=== PATIENT | female | born 1940 | race Hispanic/Latino ===

== ENCOUNTER 2021-07-02 12:16 | Emergency (ER) | payer BC, OTHER ==
[2021-07-02] MEDS ORDERED: IBUPROFEN 400 MG TAB ONE (13:35)
--- NOTE | 2021-07-02 13:36 | RAD REPORT ---
EXAM DESCRIPTION: CT - CTHCSPWOC - 07/02/2021 1:04 pm CLINICAL HISTORY: Fall injury, blunt force trauma to the face, head and neck pain COMPARISON: No comparisons TECHNIQUE: Axial 5 mm thick images of the head were obtained. Axial 2 mm thick images of the cervic al spine were obtained with sagittal and coronal reconstruction images generated and reviewed. All CT scans are performed using dose optimization technique as appropriate and may include automated exposure control or mA/KV adjustment according to patient size. FINDINGS: No intracranial hemorrhage, mass, edema or acute intracranial finding. No suspicion for ac klarissa infarction. No extra-axial fluid collections. Patient has minimal for age atrophy. Ventricles are normal size. Mild chronic ischemic pattern seen in the cerebral white matter and basal ganglia. Mast oid air cells are clear. Sinuses, facial bones and orbits are separately detailed. Cervical bodies are normal in height. There is very slight retrolisthesis of C5 on C6 where there is also significant C5-6 disc space narrowing and endplate spurring. C6-7 disc levels also narrowed. Mil d bilateral bony foraminal encroachment at both of these disc levels. No other disc space narrowing. No fracture or acute bony abnormality. No pathologic bone process. Central canal detail is inherently limited. No paraspinal mass or hematoma. IMPRESSION: No hemorrhage, edema or acute intracranial finding identified. Orbits, facial bones and sinuses are separately detailed. Negative CT cervical spine examination for acute finding. Degenerative changes are prominent at C5-6 and C6-7.
--- NOTE | 2021-07-02 13:38 | RAD REPORT ---
EXAM DESCRIPTION: CT - Facial Bones W/ Mpr - 07/02/2021 1:04 pm CLINICAL HISTORY: Fall, blunt force trauma to the face COMPARISON: None. TECHNIQUE: Axial 2 millimeter thick images of the facial bones were obtained with sagittal and coron al reconstruction imaging. All CT scans are performed using dose optimization technique as appropriate and may include automated exposure control or mA/KV adjustment according to patient size. FINDINGS: The patient has a nondisplaced fracture at the tip of the nasal bone. Nasal septum shows s light left deviation. An acute nasal septum fracture is not seen. No globe or orbital content injury seen. No other facial bone fracture is identified. Mandible appears intact with condyles normally pos itioned. Mastoid air cells and middle ears are clear. Patient has bilateral maxillary sinus mucosal thickening. Antral window defects are present. Chronic sinusitis changes are present to the abreu of the left maxillary sinus. No air-fluid level or other a cute paranasal sinus finding. IMPRESSION: Patient has a nondisplaced fracture at the tip of the nasal bone. No other facial bone f racture seen. Chronic maxillary sinusitis.
[2021-07-02] MEDS ORDERED: ACETAMINOPHEN 325 MG TABLET ONE (13:41)
[2021-07-02] MEDS ORDERED: DERMABOND SKIN ADHESIVE TOP ONE (14:11)
--- NOTE | 2021-07-02 14:54 | ER ---
Nurse's Notes [facility] Name: Araceli Hill Age: 81 yrs Sex: Female : 1940 Arrival Date: 07/02/2021 Time: 12:18 Bed 17 Private MD: Diagnosis: Fracture of nasal bones;Fall on same level, unspecified;Abrasion, right knee;Abrasion of nose Presentation: 07/02 12:29 Chief complaint: Patient states: about 20 minutes ago pt tripped over the concrete vg1 block in [place] the [place] and fell onto Right knee and nose. Pt appears to have a skin tear on Right knee and nose; nose appears to be swollen and blue in color. Bleeding is controlled. Coronavirus screen: Vaccine status: Patient reports receiving the 2nd dose of the covid vaccine. Client denies travel out of the [place] in the last 14 days. Ebola Screen: Patient negative for fever greater than or equal to 101.5 degrees Fahrenheit, and additional compatible Ebola Virus Disease symptoms. Initial Sepsis Screen: Does the patient meet any 2 criteria? No. Patient's initial sepsis screen is negative. Does the patient have a suspected source of infection? No. Patient's initial sepsis screen is negative. Risk Assessment: Do you want to hurt yourself or someone else? Patient reports no desire to harm self or others. Onset of symptoms was July 02, 2021. 12:29 Method Of Arrival: Wheelchair vg1 12:29 Acuity: DANYEL 3 vg1 13:48 Care prior to arrival: None. Mechanism of Injury: Fall. Trauma event details: Injury ll1 occurred in the [facility]. Triage Assessment: 12:31 General: Appears in no apparent distress. uncomfortable, Behavior is calm, cooperative. vg1 Pain: Complains of pain in right knee and nose Pain currently is 6 out of 10 on a pain scale. Pain began 30 min ago. Neuro: Level of Consciousness is awake, alert, obeys commands, Oriented to person, place, time, situation. Respiratory: Airway is patent Respiratory effort is even, unlabored. Musculoskeletal: Circulation, motion, and sensation intact. Trauma Activation: Not Applicable Physician: ED Physician; Name: ; Notified At: ; Arrived At: Physician: General Surgeon; Name: ; Notified At: ; Arrived At: Physician: Radiology; Name: ; Notified At: ; Arrived At: Physician: Respiratory; Name: ; Notified At: ; Arrived At: Physician: Lab; Name: ; Notified At: ; Arrived At: Historical: - Allergies: 12:31 Levaquin; vg1 12:31 Amoxicillin; vg1 - Home Meds: 12:31 Xarelto oral oral [Active]; Lisinopril Oral [Active]; Metformin Oral [Active]; vg1 13:44 sotalol 120 mg Oral tab [Active]; Jardiance 10 mg oral tab [Active]; lovastatin 10 mg ll1 Oral tab [Active]; multivitamin oral tab [Active]; - PMHx: 12:31 Hypertensive disorder; Diabetes mellitus; Hypercholesterolemia; Arthritis; vg1 - Immunization history:: Client reports receiving the 2nd dose of the Covid vaccine. - Social history:: Smoking status: Patient denies any tobacco usage or history of. - Immunization history: Last tetanus immunization: - up to date. Screenin:35 Abuse screen: Denies threats or abuse. Nutritional screening: No deficits noted. ll1 Tuberculosis screening: No symptoms or risk factors identified. 13:49 Fall Risk Fall in past 12 months (25 points). Gait- Impaired (20 pts.). Total Luo ll1 Fall Scale indicates High Risk Score (45 or more points). Fall prevention measures have been instituted. Side Rails Up X 2 Frequent Obs/Assessments Occuring As available patient and family educated on Fall Prevention Program and Strategies. Primary Survey: 13:47 NO uncontrolled hemorrhage observed. A: The patient is alert. Airway: patent. ll1 Breathing/Chest: Respiratory pattern: regular, Respiratory effort: spontaneous, unlabored, Breath sounds: clear. Circulation: Pulses: palpable right radial artery and left radial artery. Skin color: pink. Disability Alert. Exposure/Environment: There is no evidence of uncontrolled external bleeding. Obvious injury(ies) are noted at this time: nose and R knee A warming method has been applied: A warm blanket has been provided to the patient. 14:47 Reassessment Breathing/Chest Respiratory pattern Regular Respiratory effort Spontaneous ll1 Unlabored Breath sounds Clear Chest inspection Symmetrical. Assessment: 13:30 Reassessment: No changes from previously documented assessment. Patient and/or family ll1 updated on plan of care and expected duration. Pain level reassessed. Patient is alert, oriented x 3, equal unlabored respirations, skin warm/dry/pink. 14:30 Reassessment: No changes from previously documented assessment. Patient and/or family ll1 updated on plan of care and expected duration. Pain level reassessed. Patient is alert, oriented x 3, equal unlabored respirations, skin warm/dry/pink. Vital Signs: 12:29 BP 140 / 62; Pulse 74; Resp 16; Temp 98.3; Pulse Ox 98% ; Weight 66.68 kg; Height 5 ft. vg1 5 in. (165.10 cm); Pain 6/10; 14:46 BP 159 / 71; Pulse 66; Resp 16; Pulse Ox 98% ; ll1 12:29 Body Mass Index 24.46 (66.68 kg, 165.10 cm) vg1 Christy Coma Score: 13:48 Eye Response: spontaneous(4). Verbal Response: oriented(5). Motor Response: obeys ll1 commands(6). Total: 15. Trauma Score (Adult): 13:48 Eye Response: spontaneous(1); Verbal Response: oriented(1); Motor Response: obeys ll1 commands(2); Systolic BP: > 89 mm Hg(4); Respiratory Rate: 10 to 29 per min(4); Sandgap Score: 15; Trauma Score: 12 ED Course: 12:18 Patient arrived in ED. as 12:23 Kenny Lee, RN is Primary Nurse. ll1 12:23 Arm band placed on Patient placed in an exam room, on a stretcher. ll1 12:31 Triage completed. vg1 12:32 Darryl Ellington NP is PHCP. pm1 12:32 Deanne Perdomo MD is Attending Physician. pm1 12:34 Irrigation of abrasion on nose, R knee irrigated with normal saline Patient tolerated ll1 well. 13:04 CT Facial Bones W/O Con In Process Unspecified. EDMS 13:04 CT Head C Spine In Process Unspecified. EDMS 13:48 Patient has correct armband on for positive identification. Bed in low position. Call ll1 light in reach. Side rails up X 1. Cardiac monitoring not applicable on this patient. 13:48 Patient maintains SpO2 saturation greater than 95% on room air. Thermoregulation: warm ll1 blanket given to patient. 14:46 No provider procedures requiring assistance completed. Patient did not have IV access ll1 during this emergency room visit. Administered Medications: 13:44 Drug: Tylenol 650 mg Route: PO; ll1 15:07 Follow up: Response: No adverse reaction ll1 Output: 15:07 Urine: 100ml; Total: 100ml. ll1 Outcome: 14:53 Discharge ordered by . pm1 15:06 Discharged to home ambulatory. ll1 15:06 Condition: stable 15:06 Discharge instructions given to patient, family, Instructed on discharge instructions, follow up and referral plans. no drinking with medication, no driving heavy equipment, medication usage, wound care, Demonstrated understanding of instructions, follow-up care, medications, wound care, Prescriptions given X 1. 15:07 Patient left the ED. 1 Signatures: Dispatcher [employer] Negin Strong Patrick, ROBIN CENTERLESS GRINDING MACHINE ADJUSTER pm1 Radha Longoria, RN RN vg1 Kenny Lee RN RN ll1 Corrections: (The following items were deleted from the chart) 13:47 13:44 Home Meds: Flexeril 10 mg Oral tab once daily; 1 1
--- NOTE | 2021-07-02 14:54 | EDPHYS ---
Physician Documentation [facility] Name: Araceli Hill Age: 81 yrs Sex: Female : 1940 Arrival Date: 07/02/2021 Time: 12:18 Bed 17 Private MD: ED Physician Deanne Perdomo HPI: 07/02 12:41 This 81 yrs old Female presents to ER via Wheelchair with complaints of Fall pm1 injury, abrasion to leg and nose. 12:41 Details of fall: The patient fell and struck a concrete surface. Onset: The pm1 symptoms/episode began/occurred just prior to arrival. Associated injuries: The patient sustained right knee, abrasion, nose, abrasion, contusion. The patient has not experienced similar symptoms in the past. The patient has not recently seen a physician. Patient was walking in parking lot and tripped on the parking lot wheel stops and landed on her right knee and face. No neck pain, no LOC, no headache. Patient with contusion and abrasion to nose and nasal pain. Historical: - Allergies: 12:31 Levaquin; vg1 12:31 Amoxicillin; vg1 - Home Meds: 12:31 Xarelto oral oral [Active]; Lisinopril Oral [Active]; Metformin Oral [Active]; vg1 13:44 sotalol 120 mg Oral tab [Active]; Jardiance 10 mg oral tab [Active]; lovastatin 10 mg ll1 Oral tab [Active]; multivitamin oral tab [Active]; - PMHx: 12:31 Hypertensive disorder; Diabetes mellitus; Hypercholesterolemia; Arthritis; vg1 - Immunization history:: Client reports receiving the 2nd dose of the Covid vaccine. - Social history:: Smoking status: Patient denies any tobacco usage or history of. - Immunization history: Last tetanus immunization: - up to date. ROS: 12:41 Constitutional: Negative for fever, chills, and weight loss. pm1 12:41 Eyes: Negative for injury, pain, redness, and discharge, ENT: Negative for injury, pain, and discharge, Neck: Negative for injury, pain, and swelling, Cardiovascular: Negative for chest pain, palpitations, and edema, Respiratory: Negative for shortness of breath, cough, wheezing, and pleuritic chest pain, Abdomen/GI: Negative for abdominal pain, nausea, vomiting, diarrhea, and constipation. 12:41 Neuro: Negative for headache, weakness, numbness, tingling, and seizure. 12:41 MS/extremity: Positive for abrasion, of the right knee. 12:41 Skin: Positive for abrasion(s), ecchymosis, of the nose. 12:41 All other systems are negative. Exam: 12:41 Constitutional: This is a well developed, well nourished patient who is awake, alert, pm1 and in no acute distress. Head/Face: Normocephalic, atraumatic. Eyes: Pupils equal round and reactive to light, extra-ocular motions intact. Lids and lashes normal. Conjunctiva and sclera are non-icteric and not injected. Cornea within normal limits. Periorbital areas with no swelling, redness, or edema. 12:41 Neck: Trachea midline, no thyromegaly or masses palpated, and no cervical lymphadenopathy. Supple, full range of motion without nuchal rigidity, or vertebral point tenderness. No Meningismus. 12:41 Chest/axilla: Normal chest wall appearance and motion. Nontender with no deformity. No lesions are appreciated. 12:41 ENT: Nose: abrasion, that is superficial, on the apex of the nose, Contusion to bridge of nose. 12:41 Cardiovascular: Exam negative for acute changes, Rate: normal, Rhythm: regular, Pulses: no pulse deficits are appreciated, Heart sounds: normal. 12:41 Respiratory: Exam negative for acute changes, respiratory distress, shortness of breath, Breath sounds: are clear throughout. 12:41 Abdomen/GI: Exam negative for acute changes, Inspection: abdomen appears normal, Palpation: abdomen is soft and non-tender, in all quadrants. 12:41 Skin: Appearance: normal except for affected area, injury, abrasion(s), small abrasion noted, of the right knee. 12:41 Neuro: Exam negative for acute changes, Orientation: is normal, Mentation: is normal, Motor: is normal, moves all fours. Vital Signs: 12:29 BP 140 / 62; Pulse 74; Resp 16; Temp 98.3; Pulse Ox 98% ; Weight 66.68 kg; Height 5 ft. vg1 5 in. (165.10 cm); Pain 6/10; 14:46 BP 159 / 71; Pulse 66; Resp 16; Pulse Ox 98% ; ll1 12:29 Body Mass Index 24.46 (66.68 kg, 165.10 cm) vg1 Christy Coma Score: 13:48 Eye Response: spontaneous(4). Verbal Response: oriented(5). Motor Response: obeys ll1 commands(6). Total: 15. Trauma Score (Adult): 13:48 Eye Response: spontaneous(1); Verbal Response: oriented(1); Motor Response: obeys ll1 commands(2); Systolic BP: > 89 mm Hg(4); Respiratory Rate: 10 to 29 per min(4); Christy Score: 15; Trauma Score: 12 MDM: 12:40 Patient medically screened. pm1 14:51 Data reviewed: vital signs. Data interpreted: Pulse oximetry: on room air is 98 %. pm1 Interpretation: normal. Counseling: I had a detailed discussion with the patient and/or guardian regarding: the historical points, exam findings, and any diagnostic results supporting the discharge/admit diagnosis, radiology results, the need for outpatient follow up, to return to the emergency department if symptoms worsen or persist or if there are any questions or concerns that arise at home. 07/02 12:40 Order name: CT Facial Bones W/O Con; Complete Time: 13:55 pm1 07/02 12:40 Order name: CT Head C Spine; Complete Time: 13:55 pm1 07/02 14:08 Order name: Dermabond; Complete Time: 15:07 pm1 Administered Medications: 13:44 Drug: Tylenol 650 mg Route: PO; ll1 15:07 Follow up: Response: No adverse reaction ll1 Disposition: 18:11 Co-signature as Attending Physician, eDanne Perdomo MD PA/ATTENDING PSYCHIATRIST's history reviewed, ma2 patient interviewed, and examined. I agree with assessment and care plan and confirm the diagnosis (es) above. Disposition Summary: 07/02/21 14:53 Discharge Ordered Location: Home pm1 Problem: new pm1 Symptoms: have improved pm1 Condition: Stable pm1 Diagnosis - Fracture of nasal bones pm1 - Fall on same level, unspecified pm1 - Abrasion, right knee pm1 - Abrasion of nose pm1 Followup: pm1 - With: Emergency Department - When: As needed - Reason: Worsening of condition Followup: pm1 - With: Private Physician - When: 2 - 3 days - Reason: Recheck today's complaints, Continuance of care, Re-evaluation by your physician Discharge Instructions: - Discharge Summary Sheet pm1 - Abrasion pm1 - Tissue Adhesive Wound Care pm1 - Head Injury, Adult pm1 - Fall Prevention in the Home, Adult pm1 - Nasal Fracture pm1 Forms: - Medication Reconciliation Form pm1 - Thank You Letter pm1 - Antibiotic Education pm1 - Prescription Opioid Use pm1 Prescriptions: - Tramadol 50 mg Oral Tablet - take 1 tablet by ORAL route every 8 hours as needed; 12 tablet; Refills: 0, pm1 Product Selection Permitted Signatures: Dispatcher [employer] EDMS Darryl Ellington, ROBIN ATTENDING PSYCHIATRIST pm1 Deanne Perdomo MD MD ma2 Radha Longoria RN RN 1 Kenny Lee RN RN ll1 Corrections: (The following items were deleted from the chart) 13:47 13:44 Home Meds: Flexeril 10 mg Oral tab once daily; ll1 ll1
[2021-07-02 15:12] VITALS: TEMP 98.3; O2SAT 98
[2021-07-02 15:13] VITALS: BP 159/71
== END 2021-07-02 15:07 | disposition home or self-care (01) ==
LOC: ER 12:16
DX: S02.2XXA Fracture of nasal bones, initial encounter for closed fracture (principal); S80.211A Abrasion, right knee, initial encounter; S00.31XA Abrasion of nose, initial encounter; W18.30XA Fall on same level, unspecified, initial encounter; I10 Essential (primary) hypertension; E11.9 Type 2 diabetes mellitus without complications; Z88.1 Allergy status to other antibiotic agents
CPT/HCPCS: 70450; 70486; 72125; 76377; 99284

== ENCOUNTER 2024-01-10 12:10 | Inpatient (IN) | payer BC, OTHER ==
[2024-01-10 12:41] LABS: Absolute Eosinophils 0.1 K/uL (0-0.5); Absolute Lymphocytes (CBC) 3.3 K/uL (0.7-4.9); Absolute Monocytes 1.2 K/uL (0.1-1.3); Absolute Neutrophil 5.3 K/uL (1.8-8.0); Basophils % 0.4 % (0-1.3); Eosinophils % 0.7 % (0-4.4); Hematocrit 29.7 % (36.0-45.0); Lymphocytes % 33.3 % (15.3-44.8); MCH 21.9 pg (27.0-35.0); MCHC 30.3 g/dL (32.0-36.0); MCV 72.1 fL (80-100); MPV 8.2 fL (7.6-11.3); Monocytes % 11.9 % (3.3-12.3); Neutrophils % 53.7 % (41.7-73.7); Platelets 267 thou/uL (152-406); RBC Red Blood Cell Count 4.12 M/uL (3.86-4.86); Red Cell Distribution Width 19.4 % (12.1-15.2)
--- NOTE | 2024-01-10 12:48 | RAD REPORT ---
EXAM DESCRIPTION: CT - Ct Stroke Brain Wo Cont - 01/10/2024 12:40 pm CLINICAL HISTORY: STROKE ALERT Headache, drowsiness, CVA COMPARISON: Facial Bones W/ Mpr dated 07/02/2021 TECHNIQUE: All CT scans are performed using dose optimization technique as appropriate and may inclu de automated exposure control or mA/KV adjustment according to patient size. FINDINGS: No intracranial hemorrhage, hydrocephalus or extra-axial fluid collection.Moderate general ized brain atrophy is present with moderate periventricular and deep white matter chronic microvascul ar ischemic changes.No areas of brain edema or evidence of midline shift. Thickening of the abreu of the left maxillary antrum, chronic. The paranasal sinuses and mastoids are otherwise clear. The calvarium is intact. IMPRESSION: No acute intracranial abnormality. The findings were discussed with Dr. Navarrete in the ER On 01/10/2024 at 12:42 p.m. by telephone.
[2024-01-10 12:50] LABS: PT Prothrombin Time 22.9 SECONDS (9.4-12.5); PTT, Activated Partial Thromb 37.2 SECONDS (24.3-36.9); Protime INR 2.13
--- NOTE | 2024-01-10 12:52 | RAD REPORT ---
EXAM DESCRIPTION: CT - Head angio - 01/10/2024 12:39 pm CLINICAL HISTORY: 1. STROKE ALER Headache, drowsiness, CVA symptomology COMPARISON: Ct Stroke Brain Wo Cont dated 01/10/2024; Facial Bones W/ Mpr dated 07/02/2021 TECHNIQUE: CT angiography of the head was performed with MIPs. All CT scans are performed using dose optimization technique as appropriate and may include automated exposure control or mA/KV adjustment according to patient size. FINDINGS: No evidence of large vessel occlusion. No evidence of aneurysm is detected. No flow-limiti ng stenosis or vascular malformation identified. Antegrade flow is seen in the vertebral arteries. The vertebral arteries are codominant. The visualized dural venous sinuses are patent. IMPRESSION: No significant flow abnormality is detected.
--- NOTE | 2024-01-10 12:55 | RAD REPORT ---
EXAM DESCRIPTION: CT - Neck Angio - 01/10/2024 12:39 pm CLINICAL HISTORY: facial droop, L Headache, drowsiness CVA symptomology COMPARISON: Head C Spine Mpr Wo Con dated 07/02/2021 TECHNIQUE: CT angiography of the neck vessels was performed with MIPs. All CT scans are performed using dose optimization technique as appropriate and may include automated exposure control or mA/KV adjustment according to patient size. FINDINGS: A left aortic arch is identified with normal three vessel configuration of the great vesse ls. No significant flow abnormality is seen of the common carotid bilaterally. Moderate hard plaquing is present involving both carotid bulbs. This results bilateral carotid stenos is estimated at 50-70% utilizing NASCET criteria. Normal flow is seen within both vertebral arteries. IMPRESSION: Moderate bilateral hard plaquing is seen resulting in stenosis estimated at 50-70% bilat erally based on NASCET criteria NASCET criteria used. Mild 0-49% stenosis Moderate 50-69% stenosis Severe 70-99% stenosis
--- NOTE | 2024-01-10 12:56 | RAD REPORT ---
EXAM DESCRIPTION: RAD - Chest Single View - 01/10/2024 12:39 pm CLINICAL HISTORY: stroke w/u Chest pain. COMPARISON: No comparisons FINDINGS: Portable technique limits examination quality. Interstitial prominence bilaterally may represent mild interstitial edema. The heart is mildly enlarg ed size. No displaced fractures. IMPRESSION: Mild CHF pattern is suspected.
[2024-01-10 13:01] LABS: ALT/SGPT 16 U/L (13-56); AST/SGOT 19 U/L (15-37); Albumin 3.9 g/dL (3.4-5.0); Alkaline Phosphatase 62 U/L (45-117); Anion Gap 11.2 mEq/L (5.0-15.0); BUN Blood Urea Nitrogen 29 mg/dL (7-18); Bicarbonate 27 mEq/L (21-32); Bilirubin Direct < 0.2 mg/dL (0-0.2); Bilirubin Total 0.2 mg/dL (0.2-1.0); Globulin 3.9 g/dL (2.3-3.5); Glomerular Filtration Rate 56 ml/min (=/>90); Glucose Level 95 mg/dL (74-106); Potassium 4.2 mEq/L (3.5-5.1); Protein, Total 7.8 g/dL (6.4-8.2); Sodium Level 138 mEq/L (136-145); Troponin High Sensitivity 9.5 pg/mL (<58.9)
--- NOTE | 2024-01-10 13:21 | ER ---
Nurse's Notes [facility] Name: Araceli Hill Age: 83 yrs Sex: Female : 1940 Arrival Date: 01/10/2024 Time: 12:10 Bed 13 Private MD: Diagnosis: Aphasia;Transient cerebral ischemic attack, unspecified Presentation: 01/09 12:15 Chief complaint: RIGHT SIDED FACIAL DROOP AND DIFFICULTY SPEAKING THAT STARTED AT NOON. hb 12:15 Pre-hospital glucose is not applicable to this patient. kc6 12:16 Coronavirus screen: At this time, the client does not indicate any symptoms associated hb with coronavirus-19. Ebola Screen: No symptoms or risks identified at this time. 12:16 Method Of Arrival: Wheelchair hb 12:16 An acute neurological deficit is present. The charge nurse has been notified. Initial hb Sepsis Screen: Does the patient meet any 2 criteria? No. Patient's initial sepsis screen is negative. Does the patient have a suspected source of infection? No. Patient's initial sepsis screen is negative. Risk Assessment: Do you want to hurt yourself or someone else? Patient reports no desire to harm self or others. Onset of symptoms was January 10, 2024 at 12:00. 12:16 Acuity: DANYEL 2 hb Triage Assessment: 12:15 The onset of the patients symptoms was less than three hours ago. kc6 19:27 The onset of the patients symptoms was. cp4 Stroke Activation: Symptom onset < 3 hours Physician: ED Attending; Name: ; Notified At: ; Arrived At: Physician: Mid-Level Provider; Name: ; Notified At: ; Arrived At: Physician: [not used]; Name: ; Notified At: ; Arrived At: Physician: [not used]; Name: ; Notified At: ; Arrived At: Physician: [not used]; Name: ; Notified At: ; Arrived At: Historical: - Allergies: 12:28 Amoxicillin; hb 12:28 Levaquin; hb - PMHx: 12:28 Arthritis; diabetes mellitus; Hypercholesterolemia; Hypertensive disorder; hb - Immunization history:: Adult Immunizations up to date. - Infectious Disease History:: Denies. - Social history:: Smoking status: Patient denies any tobacco usage or history of. Screenin:56 [facility] ED Fall Risk Assessment (Adult) History of falling in the last 3 months, kc6 including since admission No falls in past 3 months (0 pts) Confusion or Disorientation Yes (5 pts) Intoxicated or Sedated No (0 pts) Impaired Gait No (0 pts) Mobility Assist Device Used No (0 pt) Altered Elimination No (0 pt) Score/Fall Risk Level 3 or more points = High Risk. Abuse screen: Denies threats or abuse. Denies injuries from another. Nutritional screening: No deficits noted. Tuberculosis screening: No symptoms or risk factors identified. Assessment: 12:15 Reassessment: CODE STROKE CALLED, PT TO CT VIA WHEELCHAIR WITH JESSICA NUNEZ. hb 12:47 VAN Scoring: Arm Drift: Patients demonstrates NO arm weakness. Patient is VAN Negative. kc6 Visual Disturbance: No visual disturbance noted. Aphasia: Expressive aphasia noted. Provider notified of +VAN scoring. Neglect: No neglect noted. [place] [facility] Protocol Brief Cognitive Screen What is your name? Normal, Where are you right now? Normal, What year is it? Abnormal Oral Mechanism Examination Facial Symmetry: Normal, Motion: Normal, Lip Closure: Normal, Oral Mechanism Result: Normal. 3 oz Water Swallow Challenge: Pt able to drink all water without stopping, coughing, choking or throat clearing: Yes Result: PASS MD Notified: Enoz Mims MD. TNKase (Tenecteplase) Screening: Contraindications: Other: pt takes xarelto daily Is the patient on Aspirin, Heparin, or Warfarin: Yes. 12:47 General: Appears in no apparent distress. comfortable, well groomed, well developed, kc6 Behavior is calm, cooperative, appropriate for age. Pain: Denies pain. Neuro: Level of Consciousness is awake, alert, obeys commands, confused, Oriented to person, place, situation, Appropriate for age Screen Tender Helper are equal bilaterally Moves all extremities. Full function Gait is steady, Speech with expressive aphasia noted, Facial symmetry appears normal, Pupils are PERRLA, Intact Babinski is positive. Cardiovascular: Capillary refill < 3 seconds. Respiratory: Airway is patent Trachea midline Respiratory effort is even, unlabored, Respiratory pattern is regular, symmetrical. GI: No signs and/or symptoms were reported involving the gastrointestinal system. : No signs and/or symptoms were reported regarding the genitourinary system. EENT: No signs and/or symptoms were reported regarding the EENT system. Derm: No signs and/or symptoms reported regarding the dermatologic system. Skin is intact, is healthy with good turgor, Skin is pink, warm \T\ dry. Musculoskeletal: No signs and/or symptoms reported regarding the musculoskeletal system. Circulation, motion, and sensation intact. Capillary refill < 3 seconds, Range of motion: intact in all extremities. 13:46 Reassessment: Patient appears in no apparent distress at this time. No changes from kc6 previously documented assessment. Patient and/or family updated on plan of care and expected duration. Pain level reassessed. 14:46 Reassessment: Patient appears in no apparent distress at this time. No changes from kc6 previously documented assessment. Patient and/or family updated on plan of care and expected duration. Pain level reassessed. 15:10 Reassessment: PT TO MRI VIA WHEELCHAIR. kc6 15:37 Reassessment: PT RETURNED FROM MRI. kc6 Vital Signs: 12:51 BP 184 / 92; Pulse 91; Resp 20 S; Temp 98.2(O); Pulse Ox 100% on R/A; Weight 65.32 kg kc6 (R); Height 5 ft. 8 in. (R); 13:45 BP 166 / 92; Pulse 98; Resp 20 S; Pulse Ox 100% on R/A; kc6 12:51 Body Mass Index 21.89 (65.32 kg, 172.72 cm) kc6 NIH Stroke Scale Scores: 12:47 NIHSS Score: 2 kc6 ED Course: 12:12 Patient arrived in ED. mg5 12:13 Enzo Mims MD is Attending Physician. ec2 12:20 Clemencia Pugh RN is Primary Nurse. kc6 12:28 Triage completed. hb 12:29 Arm band placed on. hb 12:30 Patient has correct armband on for positive identification. Placed in gown. Bed in low kc6 position. Call light in reach. Side rails up X2. Adult w/ patient. school lunch monitor on. Pulse ox on. NIBP on. Warm blanket given. Pillow given. 12:33 Inserted saline lock: 22 gauge in right antecubital area, using aseptic technique. kc6 Blood collected. 12:41 CT Head Angio In Process Unspecified. EDMS 12:41 CT Neck Angio In Process Unspecified. EDMS 12:41 CT Stroke Brain w/o Contrast In Process Unspecified. EDMS 12:41 Stroke CXR 1 View In Process Unspecified. EDMS 13:20 Belgica Sweeney MD is Hospitalizing Provider. ec2 15:37 No provider procedures requiring assistance completed. Patient admitted, IV remains in kc6 place. 15:42 NON SLIP SOCKS GIVEN. aw1 Administered Medications: No medications were administered Medication: 15:37 VIS not applicable for this client. kc6 Point of Care Testing: Blood Glucose: 12:15 Blood Glucose: 92 mg/dL; kc Ranges: Outcome: 13:20 Decision to Hospitalize by Provider. ec2 15:37 Admitted to ER Hold. Please see [facility] for further documentation. kc6 15:37 Condition: stable 15:37 Instructed on the need for admit, 19:28 Patient left the ED. cp4 NIH Stroke Scale - NIH Stroke Score Date: 01/10/2024 Time: 12:47 Total Score = 2 10. Dysarthria (speech clarity - read or repeat words) - 0(Normal) 11. Extinction and Inattention (visual/tactile/auditory/spatial/personal) - 0(No abnormality) 1a. Level of Consciousness (LOC) - 0(Alert) 1b. Level of Consciousness (LOC) (Month \T\ Age) - 1(One) 1c. LOC Commands (Open \T\ Closes Eyes/Gift Shop Manager) - 0(Both) 2. Best Gaze (Lateral Gaze Paresis) - 0(Normal) 3. Visual Field Loss - 0(No visual loss) 4. Facial Palsy - 0(Normal) 5a. Left Arm: Motor (10-second hold) - 0(No drift) 5b. Right Arm: Motor (10-second hold) - 0(No drift) 6a. Left Leg: Motor (5-second hold - always test supine) - 0(No drift) 6b. Right Leg: Motor (5-second hold - always test supine) - 0(No drift) 7. Limb Ataxia (finger/nose \T\ heel/pagan - test with eyes open) - 0(Absent) 8. Sensory Loss (pinprick arms/legs/face) - 0(Normal) 9. Best Language: Aphasia (description/naming/reading) - 1(Mild to moderate aphasia) Initials: [facility] Signatures: Dispatcher [employer] EDMT Jessica Weir RN RN Clemencia Morales RN RN kc6 Anca Burgossa aw1 Gisel Harrington mg5 Enzo Mims MD MD ec2 Radha Ibarra cp4 Corrections: (The following items were deleted from the chart) 12:28 12:15 Chief complaint: RIGHT SIDED FACIAL DROOP AND DIFFICULTY SPEAKING THAT hb STARTED AT NOON. hb 13:04 12:47 [place] [facility]allow Protocol Brief Cognitive Screen What is your name? Normal, kc6 Where are you right now? Normal, What year is it? Abnormal Oral Mechanism Examination Facial Symmetry: Normal, Motion: Normal, Lip Closure: Normal, Oral Mechanism Result: Normal. 3 oz Water Swallow Challenge: Pt able to drink all water without stopping, coughing, choking or throat clearing: Yes Result: PASS MD Notified: Enzo Mims MD kc6 13:45 13:45 Reassessment: Patient appears in no apparent distress at this time. No kc6 changes from previously documented assessment. Patient and/or family updated on plan of care and expected duration. Pain level reassessed. kc6 15:34 13:46 Reassessment: Patient appears in no apparent distress at this time. No kc6 changes from previously documented assessment. Patient and/or family updated on plan of care and expected duration. Pain level reassessed. Patient is alert, oriented x 3, equal unlabored respirations, skin warm/dry/pink. kc6
--- NOTE | 2024-01-10 13:21 | EDPHYS ---
Physician Documentation [facility] Name: Araceli Hill Age: 83 yrs Sex: Female : 1940 Arrival Date: 01/10/2024 Time: 12:10 Bed 13 Private MD: ED Physician Enzo Mims HPI: 01/09 12:24 This 83 yrs old Female presents to ER via Unassigned with complaints of S/S of ec2 Possible Stroke. 12:24 History gathered from and granddaughter, patient with last known well 30 ec2 minutes prior to arrival, on Xarelto. Reportedly started having right-sided facial droop as well as right upper extremity numbness. Patient with no history of stroke.. Historical: - Allergies: 12:28 Amoxicillin; hb 12:28 Levaquin; hb - PMHx: 12:28 Arthritis; diabetes mellitus; Hypercholesterolemia; Hypertensive disorder; hb - Immunization history:: Adult Immunizations up to date. - Infectious Disease History:: Denies. - Social history:: Smoking status: Patient denies any tobacco usage or history of. ROS: 12:24 Constitutional: as per hpi ec2 Exam: 12:51 Radiologist reports: negative ec2 12:51 Constitutional: GEN: NAD Head: atraumatic Eyes: EOMI Ears: External ears are normal. CV: regular rate LUNGS: no respiratory distress ABD: non-distended SKIN: no evidence of rashes MSK: no evidence of trauma NEURO: moves all extremities equally, cranial nerves II through XII intact, no appreciable facial droop, no appreciable sensory deficit. Does have +1 for aphasia, +1 for month and age, total NIH of 2. Vital Signs: 12:51 BP 184 / 92; Pulse 91; Resp 20 S; Temp 98.2(O); Pulse Ox 100% on R/A; Weight 65.32 kg kc6 (R); Height 5 ft. 8 in. (R); 13:45 BP 166 / 92; Pulse 98; Resp 20 S; Pulse Ox 100% on R/A; kc6 12:51 Body Mass Index 21.89 (65.32 kg, 172.72 cm) kc6 NIH Stroke Scale Scores: 12:47 NIHSS Score: 2 kc6 MDM: 12:13 Patient medically screened. ec2 12:25 Data reviewed: vital signs. ED course: Patient arrives today with new onset stroke ec2 symptoms. Will obtain stroke workup. Patient is not a tenecteplase candidate given the Xarelto use. Differential diagnosis includes large vessel occlusion, ischemic stroke, intracranial brain bleed, intracranial mass.. 12:51 ED course: CBC shows anemia, discussed the case with radiology, no acute intracranial ec2 abnormality. Minor potation of the CT scan of the head, no evidence of brain bleed or mass. . 12:51 ED course: Patient arrives today for evaluation of facial droop as well as paresthesias ec2 in the right upper extremity, symptoms have since resolved. My examination yields slightly confused individual who is having some aphasia, CT scan of the head shows no acute intracranial abnormality, CT angio of the head and neck is pending. Will obtain lab work, MRI, admit for stroke workup.. 12:56 ED course: CT angio of the head and neck showed no large vessel occlusion.. ec2 12:56 ED course: EKG independently reviewed and interpreted by me, shows atrial fibrillation, ec2 rate of 92, no acute ST segment elevations, intervals are nonconcerning.. 12:57 ED course: MDM: Differential diagnosis as documented above in ED course; All lab tests ec2 ordered and reviewed as documented above; Independent interpretation of tests: EKG as above; imaging as above; History gathered from independent historian: Yes;Family; Discuss inpatient hospitalization: Yes; I discussed the case with: Hospitalist, radiologist . 13:20 ED course: Metabolic profile, troponin, LFTs are nonactionable. Will admit for ec2 strokelike symptoms, pending MRI. Discussed case with hospitalist, pending admission. . 01/09 12:23 Order name: Basic Metabolic Panel; Complete Time: 13:19 ec2 01/09 12:23 Order name: CBC with Diff; Complete Time: 15:04 ec2 01/09 12:23 Order name: Hepatic Function; Complete Time: 13:19 ec2 01/09 12:23 Order name: High Sensitivity Troponin; Complete Time: 13:19 ec2 01/09 12:23 Order name: Protime (+inr); Complete Time: 12:56 ec2 01/09 12:23 Order name: Ptt, Activated; Complete Time: 12:56 ec2 01/09 12:47 Order name: CBC Smear Scan; Complete Time: 15:04 EDMS 01/09 12:52 Order name: CREATININE WHOLE BLOOD; Complete Time: 12:56 EDMS 01/09 12:53 Order name: Glucose, Ancillary Testing; Complete Time: 12:56 EDMS 01/09 14:55 Order name: CBC with Automated Diff EDMS 01/09 14:55 Order name: CBC with Automated Diff EDMS 01/09 14:55 Order name: CBC with Automated Diff EDMS 01/09 14:55 Order name: CBC with Automated Diff EDMS 01/09 14:55 Order name: Comprehensive Metabolic Panel EDMS 01/09 14:55 Order name: Comprehensive Metabolic Panel EDMS 01/09 14:55 Order name: Comprehensive Metabolic Panel EDMS 01/09 14:55 Order name: Comprehensive Metabolic Panel EDMS 01/09 14:55 Order name: Hemoglobin A1c EDMS 01/09 14:55 Order name: Hemoglobin A1c EDMS 01/09 14:55 Order name: Lipid Profile EDMS 01/09 14:55 Order name: Lipid Profile EDMS 01/09 14:55 Order name: Magnesium EDMS 01/09 14:55 Order name: Magnesium EDMS 01/09 14:55 Order name: Magnesium EDMS 01/09 14:55 Order name: Magnesium EDMS 01/09 14:55 Order name: Protime (+INR) EDMS 01/09 14:55 Order name: Protime (+INR) EDMS 01/09 14:55 Order name: Protime (+INR) EDMS 01/09 14:55 Order name: Protime (+INR) EDMS 01/09 14:55 Order name: Protime (+INR) EDMS 01/09 14:55 Order name: Protime (+INR) EDMS 01/09 14:55 Order name: T4,Total EDMS 01/09 14:55 Order name: T4,Total EDMS 01/09 14:55 Order name: Thyroid Stimulating Hormone EDMS 01/09 14:55 Order name: Thyroid Stimulating Hormone EDMS 01/09 16:54 Order name: Glucose, Ancillary Testing EDMS 01/09 12:23 Order name: CT Head Angio; Complete Time: 12:56 ec2 01/09 12:23 Order name: CT Neck Angio; Complete Time: 12:56 ec2 01/09 12:23 Order name: CT Stroke Brain w/o Contrast; Complete Time: 12:50 ec2 01/09 12:23 Order name: Stroke CXR 1 View; Complete Time: 13:01 ec2 01/09 14:55 Order name: Echo with Doppler EDLA 01/09 15:51 Order name: MRI [facility] 01/09 12:23 Order name: EKG; Complete Time: 12:23 ec2 01/09 14:55 Order name: CONS Physician Consult [facility] 01/09 14:55 Order name: Physical Therapy Consult [facility] 01/09 14:55 Order name: Social Service Consult [facility] 01/09 14:55 Order name: Speech Therapy Consult [facility] 01/09 12:23 Order name: Accucheck; Complete Time: 12:51 ec2 01/09 12:23 Order name: Cardiac monitoring; Complete Time: 12:51 ec2 01/09 12:23 Order name: EKG - Nurse/Tech; Complete Time: 12:51 ec2 01/09 12:23 Order name: IV Saline Lock; Complete Time: 12:51 ec2 01/09 12:23 Order name: Labs collected and sent; Complete Time: 12:51 ec2 01/09 12:23 Order name: NPO; Complete Time: 12:51 ec2 01/09 12:23 Order name: O2 Per Protocol; Complete Time: 12:51 ec2 01/09 12:23 Order name: O2 Sat Monitoring; Complete Time: 12:51 ec2 01/09 12:23 Order name: Stroke Swallow Screen; Complete Time: 12:37 ec2 Administered Medications: No medications were administered Point of Care Testing: Blood Glucose: 12:15 Blood Glucose: 92 mg/dL; kc6 Ranges: Critical Glucose Levels:Adult <50 mg/dl or >400 mg/dl <40 mg/dl or >180 mg/dl Disposition Summary: 01/10/24 13:20 Hospitalization Ordered Notes: Hospitalization Status: Inpatient Admission ec2 Provider: Belgica Sweeney ec2 Location: Telemetry/MedSurg (Inpatient) ec2 Condition: Stable ec2 Problem: new ec2 Symptoms: have improved ec2 Bed/Room Type: Standard ec2 [facility]10[facility]24 18:18) [id number] Diagnosis - Aphasia ec2 - Transient cerebral ischemic attack, unspecified ec2 Forms: - Medication Reconciliation Form ec2 - SBAR form ec2 - Leadership Thank You Letter ec2 NIH Stroke Scale - NIH Stroke Score Date: 01/10/2024 Time: 12:47 Total Score = 2 10. Dysarthria (speech clarity - read or repeat words) - 0(Normal) 11. Extinction and Inattention (visual/tactile/auditory/spatial/personal) - 0(No abnormality) 1a. Level of Consciousness (LOC) - 0(Alert) 1b. Level of Consciousness (LOC) (Month \T\ Age) - 1(One) 1c. LOC Commands (Open \T\ Closes Eyes/Global Logistics Manager) - 0(Both) 2. Best Gaze (Lateral Gaze Paresis) - 0(Normal) 3. Visual Field Loss - 0(No visual loss) 4. Facial Palsy - 0(Normal) 5a. Left Arm: Motor (10-second hold) - 0(No drift) 5b. Right Arm: Motor (10-second hold) - 0(No drift) 6a. Left Leg: Motor (5-second hold - always test supine) - 0(No drift) 6b. Right Leg: Motor (5-second hold - always test supine) - 0(No drift) 7. Limb Ataxia (finger/nose \T\ heel/pagan - test with eyes open) - 0(Absent) 8. Sensory Loss (pinprick arms/legs/face) - 0(Normal) 9. Best Language: Aphasia (description/naming/reading) - 1(Mild to moderate aphasia) Initials: kc6 Signatures: Dispatcher [employer] EDMS Diane Lyle, FLOOR INSTALLATION MECHANIC-C FLOOR INSTALLATION MECHANIC-Csnw Jessica Weir, MAYRA NUNEZ Enzo Mims MD MD 2 Fabiana Chowdhury [facility] Corrections: (The following items were deleted from the chart) 12:24 12:23 BASIC METABOLIC PANEL+C.LAB.BRZ ordered. EDMS EDMS 12:24 12:23 CBC+H.LAB.BRZ ordered. EDMS EDMS 12:24 12:23 HEPATIC FUNCTION+C.LAB.BRZ ordered. EDMS EDMS 12:24 12:23 Troponin High Sensitivity+C.LAB.BRZ ordered. EDMS EDMS 12:24 12:23 PROTIME (+INR)+COAG.LAB.BRZ ordered. EDMS EDMS 12:24 12:23 PTT, ACTIVATED+COAG.LAB.BRZ ordered. EDMS EDMS 12:50 12:50 Brain Wo Cont+MRI.RAD.BRZ ordered. EDMS EDMS 18:18 13:20 ec2 [id number]
[2024-01-10 14:18] LABS: Anisocytosis 2+; Blood Morphology Comment NOTED (NOT SEEN); Hypochromasia 2+; Platelet Estimate ADEQ; White Blood Cell Scan OK (OK)
--- NOTE | 2024-01-10 15:06 | P.HP ---
Certification for Inpatient Patient admitted to: Inpatient With expected LOS: >2 Midnights <ValdoDiane Vaughn - Last Filed: 01/10/24 14:54> Patient History Date of Service: 01/10/24 Reason for admission: CVA History of Present Illness: Ms. Araceli Hill is a 83-year-old female with a past medical history of diabetes, hypertension, hyperlipidemia, arthritis, and atrial fibrillation. She and her are visiting her grandchild and are here from [place], [place]. At 1130 this morning she felt numbness in her right hand and arm and up into her mouth, it was felt that she had some slight facial droop, and she seemed to be having some aphasia. She was evaluated in the emergency department and an NIH stroke scale of [address] head negative for acute findings, CTA of head and neck both negative for acute findings specifically no large vessel occlusion. MRI brain protocol has been ordered. EKG shows rate controlled A-fib. Adelso Vasc score 4 (high risk) Patient is oriented, in no distress, on my arrival to the department she was being standby assisted with ambulation to the bathroom. She does still seem to have trouble naming objects, no facial symptoms appreciated, noted mild drift in the right lower extremity. NIHSS 3. Ms. Hill sees Dr. Wilder (next appointment in mid February) and has an appointment with her PCP next week. We will admit her for further investigation and treatment. Laboratory evaluation reveals: WBC 9.9 with no shift, H/H 9/29.7 with platelets of 267, electrolytes and liver enzymes normal, INR 2.13, troponin 9.5 Chest x-ray shows mild CHF pattern Home medications list reviewed: Yes - Past Medical/Surgical History Has patient received pneumonia vaccine in the past: Yes -: Hypertension -: Hyperlipidemia -: CHF -: A. fib -: Arthritis -: Diabetes Psychosocial/ Personal History: Lives at home with her of 58 years, Cecil. Has a walker. Her encourages her to ambulate with assist. In [place] visiting grandchildren. - Social History Smoking Status: Never smoker Alcohol use: No CD- Drugs: No Caffeine use: Yes Place of Residence: Home <Diane Lyle - Last Filed: 01/10/24 14:54> Date of Service: 01/10/24 <Belgica Sweeney Jet - Last Filed: 01/10/24 18:09> Allergies levofloxacin [From Levaquin] Allergy (Verified 01/10/24 15:07) Penicillins Allergy (Verified 01/10/24 15:07) Home Medications: Digoxin 125 mcg PO SEECOM 01/10/24 Furosemide [Lasix] 20 mg PO DAILY 01/10/24 Metformin ER [Glucophage ER] 1,000 mg PO DAILY 01/10/24 Metoprolol Tartrate 50 mg PO DAILY 01/10/24 Pantoprazole Sodium [Protonix] 40 mg PO DAILY 01/10/24 Potassium Chloride 10 meq PO DAILY 01/10/24 Rivaroxaban [Xarelto] 20 mg PO DAILY 01/10/24 Rosuvastatin Calcium 40 mg PO DAILY 01/10/24 Review of Systems 10-point ROS is otherwise unremarkable Neurological: As per HPI <Diane Lyle - Last Filed: 01/10/24 14:54> Physical Examination - Physical Exam General: Alert, In no apparent distress, Oriented x3 HEENT: Atraumatic, Normocephalic Neck: Supple Respiratory: Normal air movement Cardiovascular: No edema, Normal pulses, Irregular heart rate/rhythm Capillary refill: <2 Seconds Gastrointestinal: Soft and benign Musculoskeletal: No clubbing, No swelling Integumentary: No rashes Neurological: Normal tone, Normal affect, Other (right lower ext. drift, NIHSS 3), Abnormal speech, Abnormal sensation Lymphatics: No axilla or inguinal lymphadenopathy External genitalia: Deferred Rectal: Deferred - Studies Laboratory Data (last 24 hrs) 01/10/24 01/10/24 01/10/24 12:33 12:33 12:33 WBC 9.90 Hgb 9.0 L Hct 29.7 L Plt Count 267 PT 22.9 H INR 2.13 APTT 37.2 H Sodium 138 Potassium 4.2 BUN 29 H Creatinine 1.00 Glucose 95 Total Bilirubin 0.2 AST 19 ALT 16 Alkaline Phosphatase 62 <Diane Lyle - Last Filed: 01/10/24 14:54> - Studies Laboratory Data (last 24 hrs) 01/10/24 01/10/24 01/10/24 12:33 12:33 12:33 WBC 9.90 Hgb 9.0 L Hct 29.7 L Plt Count 267 PT 22.9 H INR 2.13 APTT 37.2 H Sodium 138 Potassium 4.2 BUN 29 H Creatinine 1.00 Glucose 95 Total Bilirubin 0.2 AST 19 ALT 16 Alkaline Phosphatase 62 <Belgica Sweeney - Last Filed: 01/10/24 18:09> Assessment and Plan - Plan CVA, HTN, Afib MRI Brain ASA 81mg po daily Xarelto 20mg po daily folic acid 1mg po dialy Neuro checks q 4h NIHSS q shift Skin protective measures Consult Dr. Cid Swallow screen prior to soft, bite size diet Consult PT/Speech A. Fib Continue medications for rate control Anticoagulation Echocardiogram tele HLD Rosuvastatin 40mg po q HS DM Glucose monitoring q ACHS mild SSI coverage Hold metformin 2nd to iv contrast GI and DVT prophylaxis ASA/Xarelto/Protonix - Advance Directives Does patient have a Living Will: No Does patient have a Durable POA for Healthcare: No - Code Status/Comfort Care Code Status Assessed: Yes Code Status: Full Code <Diane Lyle Roderick - Last Filed: 01/10/24 14:54> - Plan Pt is an 83yo female with past medical history of Diabetes, hypertension, hyperlipidemia, arthritis, and atrial fibrillation who presents presents with numbness in the right hand and arm with facial droop that was witnessed by a family member. The right hand numbness started at 1130am and pt came to ER for evaluation. On admission, Lab studies show wbc 9.9, Hgb 9, NA 138, K 4.2, Cr 1.0, CT head is negative for acute findings. CTA head is unremarkable. 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 MRI brain is unremarkable. At bedside, pt is in NAD without CVA symptoms. A/P: TIA: will observe pt overnight. Continue aspirin, atorvastatin, and permissive htn. CTA neck shows bilateral stenosis 50 - 70%. MRI brain is unremarkable. Consulted Neurology. DM II: Continue accuchek, SSI and ADA diet Htn: Continue med HLD: statin A. fib: Will continue telemetry, AC, and BB. Code: full <Belgica Sweeney - Last Filed: 01/10/24 18:09>
[2024-01-10] MEDS: METOPROLOL TAR 50 MG TAB PO SCH (15:19)
[2024-01-10] MEDS ORDERED: METOPROLOL TAR 50 MG TAB ONE ×2 (15:45→15:54)
--- NOTE | 2024-01-10 15:51 | RAD REPORT ---
EXAM DESCRIPTION: MRI - Brain Wo Cont - 01/10/2024 3:31 pm CLINICAL HISTORY: 1. STROKE ALER Headache, drowsiness, CVA COMPARISON: <Comparisons> TECHNIQUE: Multi-sequence, multiplanar MR imaging of the brain was performed without contrast. FINDINGS: No intracranial hemorrhage, hydrocephalus or extra-axial fluid collections.Moderate conflu ent T2/FLAIR hyperintensity in the periventricular and deep white matter is present compatible with c hronic microvascular ischemic changes. No edema or shift of midline structures. No findings to suspec t brain mass. DWI is negative for acute CVA. Midline structures are normally formed. Mastoid air cells and paranasal sinuses are clear. IMPRESSION: Negative for acute CVA or other acute intracranial process.
[2024-01-10 15:52] VITALS: BMI 21.7
[2024-01-10] MEDS: INSULIN REGULAR (HUMAN) 100 UNIT/ML SQ SCH (16:30)
[2024-01-10] MEDS: RIVAROXABAN 20 MG TABLET PO SCH (17:00)
[2024-01-10] MEDS: ROSUVASTATIN 10 MG TAB PO SCH (19:40)
[2024-01-10 21:12] LABS: Specific Gravity > 1.030 (1.005-1.030); Sqamous Epithelial <5 /HPF (None Seen); Urine Bacteria None Seen /HPF (<20); Urine Bilirubin NEGATIVE (Negative); Urine Blood Negative (Negative); Urine Clarity Clear (Clear); Urine Color Colorless (Yellow); Urine Culture Reflex Order NOT NEEDED; Urine Glucose NEGATIVE (Negative); Urine Ketones NEGATIVE (Negative); Urine Microscopic Reflex YN ORDER UMIC; Urine Nitrite NEGATIVE (Negative); Urine Protein TRACE (Negative); Urine RBC <5 /HPF (None Seen); Urine Urobilinogen Normal (Normal); Urine WBC <5 /HPF (<5); Urine Yeast (Budding) Trace /HPF (None Seen)
[2024-01-10] MEDS: ACETAMINOPHEN 325 MG TABLET PO PRN (21:52)
[2024-01-11 07:19] LABS: Absolute Eosinophils 0.1 K/uL (0-0.5); Absolute Lymphocytes (CBC) 1.9 K/uL (0.7-4.9); Absolute Monocytes 0.7 K/uL (0.1-1.3); Absolute Neutrophil 3.1 K/uL (1.8-8.0); Basophils % 0.5 % (0-1.3); Eosinophils % 0.9 % (0-4.4); Hematocrit 28.1 % (36.0-45.0); Hemoglobin 8.8 g/dL (12.0-15.0); Lymphocytes % 33.1 % (15.3-44.8); MCH 22.3 pg (27.0-35.0); MCHC 31.3 g/dL (32.0-36.0); MCV 71.4 fL (80-100); Monocytes % 12.2 % (3.3-12.3); Neutrophils % 53.3 % (41.7-73.7); Nucleated Red Blood Cells % 0.1 % (0-0); Platelets 237 thou/uL (152-406); RBC Red Blood Cell Count 3.93 M/uL (3.86-4.86)
[2024-01-11 07:44] LABS: ALT/SGPT < 14 U/L (13-56); AST/SGOT 14 U/L (15-37); Albumin 3.5 g/dL (3.4-5.0); Alkaline Phosphatase 50 U/L (45-117); Anion Gap 10.7 mEq/L (5.0-15.0); BUN Blood Urea Nitrogen 21 mg/dL (7-18); Bicarbonate 28 mEq/L (21-32); Bilirubin Total 0.4 mg/dL (0.2-1.0); Globulin 3.6 g/dL (2.3-3.5); Glomerular Filtration Rate 77 ml/min (=/>90); Glucose Level 111 mg/dL (74-106); HDL Cholesterol 53 mg/dL (40-60); LDL Cholesterol, Calculated 15 mg/dL (<130); LDL Cholesterol,Calc NonReport 15; Magnesium 1.8 mg/dL (1.6-2.4); Potassium 3.7 mEq/L (3.5-5.1); Protein, Total 7.1 g/dL (6.4-8.2); Sodium Level 138 mEq/L (136-145); T4,Total 7.7 ug/dL (4.8-13.9)
[2024-01-11 07:48] LABS: PT Prothrombin Time 13.6 SECONDS (9.4-12.5); Protime INR 1.24
[2024-01-11] MEDS: PANTOPRAZOLE 40MG TABLET PO SCH (08:45)
[2024-01-11] MEDS: ASPIRIN EC 81 MG TAB PO SCH (08:45)
[2024-01-11] MEDS: FOLIC ACID 1 MG TABLET PO SCH (08:45)
[2024-01-11 09:20] VITALS: O2SAT 98
--- NOTE | 2024-01-11 09:42 | P.DS ---
Admission Date: 01/10/24 Discharge Date: 01/11/24 Reason for Admission: TIA/CVA symptoms Brief History of Present Illness: Ms. Araceli Hill is a 83-year-old female with a past medical history of diabetes, hypertension, hyperlipidemia, arthritis, and atrial fibrillation. She and her are visiting her grandchild and are here from [place], [place]. At 1130 this morning she felt numbness in her right hand and arm and up into her mouth, it was felt that she had some slight facial droop, and she seemed to be having some aphasia. She was evaluated in the emergency department and an NIH stroke scale of [address] head negative for acute findings, CTA of head and neck both negative for acute findings specifically no large vessel occlusion. MRI brain protocol has been ordered. EKG shows rate controlled A-fib. Adelso Vasc score 4 (high risk) Patient is oriented, in no distress, on my arrival to the department she was being standby assisted with ambulation to the bathroom. She does still seem to have trouble naming objects, no facial symptoms appreciated, noted mild drift in the right lower extremity. NIHSS 3. Ms. Hill sees Dr. Wilder (next appointment in mid February) and has an appointment with her PCP next week. We will admit her for further investigation and treatment. Laboratory evaluation reveals: WBC 9.9 with no shift, H/H 9/29.7 with platelets of 267, electrolytes and liver enzymes normal, INR 2.13, troponin 9.5 Chest x-ray shows mild CHF pattern Hospital Course: CT head negative for acute findings, CTA of head and neck both negative for acute findings specifically no large vessel occlusion. MRI brain protocol has been read as no acute intracranial abnormality. EKG shows rate controlled A- fib. Adelso Vasc score 4 (high risk). Mrs. Hill' symptoms have resolved overnight. She has returned to baseline. Please follow-up with PCP next week as scheduled and with neurology as directed. <Diane Lyle - Last Filed: 01/11/24 09:37> Admission Date: 01/10/24 Discharge Date: 01/11/24 Hospital Course: Pt seen and examined. I agree with the note by the LEGAL RECEPTIONIST. CVA symptoms have resolved. Pt was advised to continue aspirin, rosuvastatin, xarelto and folic acid. She needs to follow up with Dr. Cid within 1 week. <Belgica Sweeney - Last Filed: 01/11/24 12:04> Disposition: ROUTINE DISCHARGE Discharge Condition: GOOD Vital Signs/Physical Exam: Temp Pulse Resp BP Pulse Ox 97.6 F 92 H 16 184/91 H 99 01/11/24 08:00 01/11/24 08:45 01/11/24 08:00 01/11/24 08:45 01/11/24 08:00 General: Alert, In no apparent distress, Oriented x3 HEENT: Atraumatic, Normocephalic Neck: Supple Respiratory: Clear to auscultation bilaterally, Normal air movement Cardiovascular: Irregular heart rate/rhythm Capillary refill: <2 Seconds Gastrointestinal: Soft and benign Musculoskeletal: No clubbing, No swelling Integumentary: No rashes Neurological: Normal speech, Normal tone, Normal affect, Other (NIHSS 0) Lymphatics: No axilla or inguinal lymphadenopathy External genitalia: Deferred Rectal: Deferred Laboratory Data at Discharge: WBC 5.70 thou/uL (4.3-10.9) 01/11/24 06:59 Hgb 8.8 g/dL (12.0-15.0) L 01/11/24 06:59 Hct 28.1 % (36.0-45.0) L 01/11/24 06:59 Plt Count 237 thou/uL (152-406) 01/11/24 06:59 PT 13.6 SECONDS (9.4-12.5) H 01/11/24 06:59 INR 1.24 01/11/24 06:59 APTT 37.2 SECONDS (24.3-36.9) H 01/10/24 12:33 Sodium 138 mEq/L (136-145) 01/11/24 06:59 Potassium 3.7 mEq/L (3.5-5.1) 01/11/24 06:59 BUN 21 mg/dL (7-18) H 01/11/24 06:59 Creatinine 0.77 mg/dL (0.55-1.02) 01/11/24 06:59 Glucose 111 mg/dL (74-106) H 01/11/24 06:59 Magnesium 1.8 mg/dL (1.6-2.4) 01/11/24 06:59 Total Bilirubin 0.4 mg/dL (0.2-1.0) 01/11/24 06:59 AST 14 U/L (15-37) L 01/11/24 06:59 ALT < 14 U/L (13-56) 01/11/24 06:59 Alkaline Phosphatase 50 U/L (45-117) 01/11/24 06:59 Triglycerides 135 mg/dL (<150) 01/11/24 06:59 Cholesterol 95 mg/dL (<200) 01/11/24 06:59 HDL Cholesterol 53 mg/dL (40-60) 01/11/24 06:59 Cholesterol/HDL Ratio 1.79 01/11/24 06:59 <Lyle,Diane Roderick - Last Filed: 01/11/24 09:37> Vital Signs/Physical Exam: Temp Pulse Resp BP Pulse Ox 97.6 F 92 H 16 184/91 H 99 01/11/24 08:00 01/11/24 08:45 01/11/24 08:00 01/11/24 08:45 01/11/24 08:00 Laboratory Data at Discharge: WBC 5.70 thou/uL (4.3-10.9) 01/11/24 06:59 Hgb 8.8 g/dL (12.0-15.0) L 01/11/24 06:59 Hct 28.1 % (36.0-45.0) L 01/11/24 06:59 Plt Count 237 thou/uL (152-406) 01/11/24 06:59 PT 13.6 SECONDS (9.4-12.5) H 01/11/24 06:59 INR 1.24 01/11/24 06:59 APTT 37.2 SECONDS (24.3-36.9) H 01/10/24 12:33 Sodium 138 mEq/L (136-145) 01/11/24 06:59 Potassium 3.7 mEq/L (3.5-5.1) 01/11/24 06:59 BUN 21 mg/dL (7-18) H 01/11/24 06:59 Creatinine 0.77 mg/dL (0.55-1.02) 01/11/24 06:59 Glucose 111 mg/dL (74-106) H 01/11/24 06:59 Magnesium 1.8 mg/dL (1.6-2.4) 01/11/24 06:59 Total Bilirubin 0.4 mg/dL (0.2-1.0) 01/11/24 06:59 AST 14 U/L (15-37) L 01/11/24 06:59 ALT < 14 U/L (13-56) 01/11/24 06:59 Alkaline Phosphatase 50 U/L (45-117) 01/11/24 06:59 Triglycerides 135 mg/dL (<150) 01/11/24 06:59 Cholesterol 95 mg/dL (<200) 01/11/24 06:59 HDL Cholesterol 53 mg/dL (40-60) 01/11/24 06:59 Cholesterol/HDL Ratio 1.79 01/11/24 06:59 <Belgica Sweeney - Last Filed: 01/11/24 12:04> Diet: AHA Activity: Ad marcia <Diane Lyle - Last Filed: 01/11/24 09:37> <Belgica Sweeney - Last Filed: 01/11/24 12:04> Home Medications: Digoxin 125 mcg PO SEECOM 01/10/24 Furosemide [Lasix] 20 mg PO DAILY 01/10/24 Metformin ER [Glucophage ER*] 1,000 mg PO DAILY 01/10/24 Metoprolol Tartrate 50 mg PO DAILY 01/10/24 Pantoprazole Sodium [Protonix] 40 mg PO DAILY 01/10/24 Potassium Chloride 10 meq PO DAILY 01/10/24 Rivaroxaban [Xarelto] 20 mg PO DAILY 01/10/24 Rosuvastatin Calcium 40 mg PO DAILY 01/10/24 Aspirin [Aspirin EC] 81 mg PO DAILY 90 Days #90 tab 01/11/24 Folic Acid 1 mg PO DAILY 30 Days #30 tab 01/11/24 New Medications: Aspirin [Aspirin EC] 81 mg PO DAILY 90 Days #90 tab Folic Acid 1 mg PO DAILY 30 Days #30 tab Physician Discharge Instructions: Okay to DC IV and DC home Follow-up with primary care provider in 1 week Follow-up with neurology in 1 to 2-weeks Please call the inpatient unit for any questions or concerns regarding hospital stay Return to the ER for worsening symptoms Followup: [email or web address] [Primary Care Provider] -
[2024-01-11 12:42] VITALS: BP 143/93; TEMP 97.1
--- NOTE | 2024-01-12 13:32 | EKG ---
Test Date: 2024-01-10 Test Time: 12:46:59 Insurance Claims Assistant: HB MEASUREMENT RESULTS: Intervals: Rate: 92 NV: QRSD: 78 QT: 338 QTc: 417 [place]son: P: NV: QRS: 41 T: 54 INTERPRETIVE STATEMENTS: Atrial fibrillation Nonspecific ST and T wave abnormality, probably digitalis effect Abnormal ECG No previous ECG available for comparison Electronically Signed On 01-12-24 13:27:59 CDT by Demetrius Samano
== END 2024-01-11 13:38 | disposition home or self-care (01) | DRG 69 ==
LOC: ER 12:10 → ERHOLD 14:43 → 2ND 18:26
PROVIDERS: ADMIT Hospitalist; ATTEND Hospitalist
DX: G45.9 Transient cerebral ischemic attack, unspecified (principal); R47.01 Aphasia; D64.9 Anemia, unspecified; I10 Essential (primary) hypertension; I48.91 Unspecified atrial fibrillation; E11.9 Type 2 diabetes mellitus without complications; E78.00 Pure hypercholesterolemia, unspecified; M19.90 Unspecified osteoarthritis, unspecified site; R29.810 Facial weakness; R29.702 NIHSS score 2; Z88.1 Allergy status to other antibiotic agents; Z88.0 Allergy status to penicillin; Z79.82 Long term (current) use of aspirin; Z79.01 Long term (current) use of anticoagulants; Z79.84 Long term (current) use of oral hypoglycemic drugs; Z79.899 Other long term (current) drug therapy
CPT/HCPCS: 36415; 70450; 70496; 70498; 70551; 71045; 80048; 80053; 80061; 80076; 81001; 82565; 82947; 83036; 83735; 84436; 84443; 84484; 85025; 85610; 85730; 93005; 97116; 97161; 97530; 99285; G0378; Q9967